=== PATIENT | female | born 1985 | race Hispanic/Latino ===

== ENCOUNTER 2018-01-30 22:55 | Inpatient (IN) | payer OTHER ==
[2018-01-30] MEDS ORDERED: Lactated Ringer's 1,000 ML IV SCH ×2 (23:45)
[2018-01-30 23:57] VITALS: BMI 28.8
[2018-01-31 00:05] LABS: BASO # 0.1 K/uL (0.0-0.2); BASO % 0.8 % (0.0-2.0); EOS # 0.1 K/uL (0.0-0.7); EOS % 0.4 % (0.0-4.0); LYMPH # 3.1 K/uL (1.0-4.3); LYMPH % 20.7 % (20.0-40.0); MEAN CELL VOLUME 88.7 fl (81.0-99.0); MEAN CORPUSCULAR HEMOGLOBIN 30.2 pg (27.0-31.0); MEAN PLATELET VOLUME 7.8 fl (7.2-11.7); MONO # 1.1 K/uL (0.0-0.8); MONO % 7.3 % (0.0-10.0); NEUT # 10.7 K/uL (1.8-7.0); NEUT % 70.8 % (50.0-75.0); NRBC % 0.1 % (0.0-0.0); RBC 4.29 Mil/uL (3.80-5.20); RED CELL DISTRIBUTION WIDTH 16.7 % (11.5-14.5); WHITE BLOOD COUNT 15.1 K/uL (4.8-10.8)
[2018-01-31] MEDS ORDERED: OXYTOCIN/0.9 % NS 20 UNIT/1,000 ML BAG IV SCH (00:15)
[2018-01-31] MEDS ORDERED: Oxytocin 30 UNITS in Sodium Chloride 0.9% 500 ML IV ONE (00:15)
[2018-01-31] MEDS ORDERED: Lactated Ringer's 1,000 ML IV SCH (00:15)
[2018-01-31] MEDS ORDERED: Fentanyl/Bupivacaine HCl 250 ML EPI ONE (00:21)
--- NOTE | 2018-01-31 02:24 | OBHP ---
Datetime: 01/31/2018 00:14 IP Adm Impression: Term, intrauterine IP Admit Plan: Admit to unit; Initiate labor protocol Pelvic Type - PN: Not Done Extremities - PN: Normal Abdomen - PN: Normal Back - PN: Normal Breast - PN: Normal Lungs - PN: Normal Heart - PN: Normal Thyroid - PN: Not Done Neurologic - PN: Normal HEENT - PN: Normal General - PN: Normal Comments, ACOG Physical Exam: General: In acute distress and pain Chest: RRR, S1S2 present Lungs: CTA B/L Abdomen: Tenderness with contractions, Gravid Ext: No pedal edema or calf tenderness Neuro: AAO x 3 SVE: 5 cm/100%/-1 IP Hx Assessment: The History has been Reviewed and is Current EGA AdmitDate IP: 39.6 Vital Signs Provider: Reviewed; Within Normal Limits IP Indication for Induction: Not Applicable IP Chief Complaint: Uterine contractions; Maternal discomfort NICHD Decel Fetus A IP Provider: None Effacement, Provider: 100 Station, Provider: -1 Genitourinary Exam: Normal DTRs - PN: Not Done Datetime: 01/30/2018 23:30 Admit Comment, IP Provider: 32 y/o, , 39.5 wks based on LMP of 04/27/17 and ESTHER of 02/01/18 prese nts to [facility] with uetrine contractions and abdominal discomfort. Contractions started at 2200hrs today which are Q2-3 mins continuous with lower abdominal pain and pressure. Denies any LOF or VB. Reports good movements. PNC: Dr. Horan records reviewed. PMHx: Denies PSHx: Denies Allergies: NKDA F/H: Noncontributory Medications: PNVs PE: General: In acute distress and pain Chest: RRR, S1S2 present Lungs: CTA B/L Abdomen: Tenderness with contractions, Gravid Ext: No pedal edema or calf tenderness Neuro: AAO x 3 SVE: 5 cm/100%/-1 A/P: 32 y/o, , 39.5 wks based on LMP of 04/27/17 and ESTHER of 02/01/18 presents to [facility] with uetr ine contractions. - EFM and toco monitoring - Contractions Q1-2 mins on toco - LR 2L @999 ml/hr - CBC and type and screen stat - 5 cm/100%/-1 Case disussed with attending Pepe Nguyen, PGY1 OB Hospitalist note. Pt seen and exained with PGY1 agree with note...observe labor progress MAHND O Presentation-Admit: Vertex FHR - Baseline A Provider: 140 Membranes, Provider: Intact Contraction Comments Provider: q2m Pool Provider: Negative NICHD Variability Prov Fetus A: Moderate 6-25bpm NICHD Accel Fetus A IP Provider: [id number] FHR Category Provider Fetus A: Category I Dilatation, Provider: 5
--- NOTE | 2018-01-31 02:42 | OBADHP ---
Datetime: 01/31/2018 02:30 Presentation-Admit: Vertex FHR - Baseline A Provider: 140 Membranes, Provider: Intact Contraction Comments Provider: occ Pool Provider: Negative NICHD Variability Prov Fetus A: Moderate 6-25bpm NICHD Accel Fetus A IP Provider: [id number] FHR Category Provider Fetus A: Category I NICHD Decel Fetus A IP Provider: None Dilatation, Provider: 9 Effacement, Provider: 100 Station, Provider: 0 Datetime: 01/31/2018 00:14 Admit Comment, IP Provider: 32 y/o, , 39.6 wks based on LMP of 04/27/17 and ESTHER of 02/01/18 prese nts with uetrine contractions and abdominal discomfort. Contractions started at 2200hrs yesterday whi ch are Q2-3 mins, continuous with lower abdominal pain and pressure. Denies any LOF or VB. Reports go od movements. PNC: Dr. Horan records reviewed. GBS Negative, B+, AB neg, HIV nonreactive, Hbsag neg, RPR, neg, Rubella immune, GC/Chl -/- PMHx: Denies PSHx: Denies Allergies: NKDA F/H: Noncontributory Medications: PNVs PE: General: In acute distress and pain Chest: RRR, S1S2 present Lungs: CTA B/L Abdomen: Tenderness with contractions, Gravid Ext: No pedal edema or calf tenderness Neuro: AAO x 3 SVE: 5 cm/100%/-1 A/P: 32 y/o, , 39.5 wks based on LMP of 04/27/17 and ESTHER of 02/01/18 presents to [facility] with uetr ine contractions. - EFM and toco monitoring - Contractions Q1-2 mins on toco - LR 2L @999 ml/hr - CBC and type and screen stat - 5 cm/100%/-1 - Anesthesia consult for epidural - NPO Case disussed with attending Pepe Nguyen, PGY1 OB Hospitalist note...Pt seen and examined. Painful CTX in Active labor. labor and pain managmen t disucsed - incl nitrous oxide, iv sedation and eipdural...anestheisa called for consultation Pelvic Type - PN: Not Done Extremities - PN: Normal Abdomen - PN: Normal Back - PN: Normal Breast - PN: Normal Lungs - PN: Normal Heart - PN: Normal Thyroid - PN: Not Done Neurologic - PN: Normal HEENT - PN: Normal General - PN: Normal Comments, ACOG Physical Exam: General: In acute distress and pain Chest: RRR, S1S2 present Lungs: CTA B/L Abdomen: Tenderness with contractions, Gravid Ext: No pedal edema or calf tenderness Neuro: AAO x 3 SVE: 5 cm/100%/-1 IP Hx Assessment: The History has been Reviewed and is Current Vital Signs Provider: Reviewed; Within Normal Limits IP Chief Complaint: Uterine contractions; Maternal discomfort Genitourinary Exam: Normal DTRs - PN: Not Done EGA AdmitDate IP: 39.6 IP Adm Impression: Term, intrauterine IP Admit Plan: Admit to unit; Initiate labor protocol
--- NOTE | 2018-01-31 02:47 | OBPN ---
Datetime: 01/31/2018 02:30 IP Progress Impression: Normal progression of labor IP Progress Plan: Continue present management; Anticipate Vaginal Delivery Pool Provider: Negative Membranes, Provider: Intact Contraction Comments Provider: occ FHR - Baseline A Provider: 140 Presentation-Admit: Vertex IP Progress Note Comment: She feels pressure in her tailbone...had epidural and feels much better Active phase of labor PLAN: observe labor progress NICHD Accel Fetus A IP Provider: [id number] FHR Category Provider Fetus A: Category I NICHD Variability Prov Fetus A: Moderate 6-25bpm Dilatation, Provider: 9 Effacement, Provider: 100 Station, Provider: 0 NICHD Decel Fetus A IP Provider: None Datetime: 01/31/2018 00:14 Vital Signs Provider: Reviewed; Within Normal Limits
[2018-01-31] MEDS ORDERED: Benzocaine/Menthol SPRAY TOP PRN ×2 (04:52→10:22)
[2018-01-31] MEDS ORDERED: Oxycodone/Acetaminophen 5/325 mg Tab PO PRN ×2 (04:52→10:22)
--- NOTE | 2018-01-31 07:25 | OBDS ---
DELIVERY PERSONNEL Delivery Doctor: Kendra Hroan DO Audiovisual Production Specialist: Irene Fletcher RN Anesthesiologist: Cr Oliva MD MATERNAL INFORMATION Delivery Anesthesia: Epidural Medications in Delivery: 30 units pitocin Estimated Blood Loss (ml): 200 Placenta Cultured: No Maternal Complications: None Provider Comments: Over intact perinuem, of live . Infant was crying spontaneously and b ulb suctioned. Infant was placed on mother's chest for skin to skin. Placenta was delivered intact spontaneously. EBL 200cc She remained stable LABOR SUMMARY EDC: 02/01/2018 00:00 No. Babies in Womb: 1 Attempted: No Labor Anesthesia: Epidural LABOR INFORMATION Reason for Induction: Not Applicable Onset of Labor: 01/30/2018 22:00 Complete Dilatation: 01/31/2018 04:00 Oxytocin: N/A Group B Beta Strep: Negative Antibiotics # of Doses: 0 Steroids Given: None Reason Steroids Not Administered: Not Applicable MEMBRANES Membranes Rupture Method: Spontaneous Rupture of Membranes: 01/31/2018 04:00 Length of Rupture (hrs): 0.53 Amniotic Fluid Color: Clear Amniotic Fluid Amount: Moderate Amniotic Fluid Odor: Normal STAGES OF LABOR Stage 1 hrs: 6 Stage 1 min: 0 Stage 2 hrs: 0 Stage 2 min: 32 Stage 3 hrs: 0 Stage 3 min: 12 Total Time in Labor hrs: 6 Total Time in Labor min: 44 VAGINAL DELIVERY Episiotomy: None Laceration Extension: N/A Laceration Type: None Initial Vag Sponge Count: 5 Final Vag Sponge Count: 5 Initial Vag Sharps Count: 1 Final Vag Sharps Count: 1 Sponge Count Correct: Yes Sharps Count Correct: Yes Count Comment: One syringe 5 lap pads BABY A INFORMATION Infant Delivery Date/Time: 01/31/2018 04:32 Method of Delivery: Vaginal Born in Route : No : N/A Forceps: N/A Vacuum Extraction: N/A Shoulder Dystocia : No SHOULDER DYSTOCIA BABY A Infant Delivery Date/Time: 01/31/2018 04:32 PRESENTATION/POSITION BABY A Presentation: Cephalic Cephalic Presentation: Vertex Breech Presentation: N/A PLACENTA INFORMATION BABY A Placenta Delivery Time : 01/31/2018 04:44 Placenta Method of Delivery: Spontaneous Placenta Status: Delivered SCORES BABY A Heart Rate 1 min: >100 bpm Resp Effort 1 min: Good Cry Reflex Irritability 1 min: Cough or Sneeze or Pulls Away Muscle Tone 1 min: Active Motion Color 1 min: Body [place], Extremities Blue Resuscitation Effort 1 min: Tactile Stimulation SCORE 1 MIN: 9 Heart Rate 5 min: >100 bpm Resp Effort 5 min: Good Cry Reflex Irritability 5 min: Cough or Sneeze or Pulls Away Muscle Tone 5 min: Active Motion Color 5 min: Body [place], Extremities Blue Resuscitation Effort 5 min: N/A SCORE 5 MIN: 9 INFANT INFORMATION BABY A Gestational Age at Delivery: 39.0 Gestational Status: Term Outcome : Liveborn Condition : Stable Infant Sex: Female WEIGHT/LENGTH BABY A Infant Birthweight (gms): 3150 Infant Weight (lb): 6 Weight (oz): 15 CORD INFORMATION BABY A No. Cord Vessels: 3 Nuchal Cord : N/A Infant Suction: None
[2018-01-31] MEDS ORDERED: Multivitamin With Minerals Tab PO SCH (09:00)
[2018-02-01 08:01] LABS: BASO # 0.1 K/uL (0.0-0.2); BASO % 0.5 % (0.0-2.0); EOS # 0.2 K/uL (0.0-0.7); EOS % 1.2 % (0.0-4.0); HEMOGLOBIN 9.8 g/dL (12.0-16.0); LYMPH # 3.4 K/uL (1.0-4.3); LYMPH % 25.7 % (20.0-40.0); MEAN CELL VOLUME 88.9 fl (81.0-99.0); MEAN CORPUSCULAR HEMOGLOBIN 30.8 pg (27.0-31.0); MEAN CORPUSCULAR HGB CONC 34.6 g/dL (33.0-37.0); MEAN PLATELET VOLUME 7.9 fl (7.2-11.7); MONO # 0.9 K/uL (0.0-0.8); MONO % 7.1 % (0.0-10.0); NEUT # 8.7 K/uL (1.8-7.0); NEUT % 65.5 % (50.0-75.0); NRBC % 0.1 % (0.0-0.0); RBC 3.18 Mil/uL (3.80-5.20); RED CELL DISTRIBUTION WIDTH 16.6 % (11.5-14.5); WHITE BLOOD COUNT 13.2 K/uL (4.8-10.8)
[2018-02-01] MEDS ORDERED: PRENATAL VITAMINS PO SCH (09:00)
[2018-02-01] MEDS: Multivitamin With Minerals Tab PO SCH (10:45)
[2018-02-01 17:18] LABS: SQUAMOUS EPITHIAL 3 /hpf (0-5); URINE BILIRUBIN NEGATIVE (NEGATIVE); URINE CLARITY SLIGHTY-CLOUDY (Clear); URINE COLOR YELLOW (YELLOW); URINE GLUCOSE (UA) NEG (Normal); URINE LEUKOCYTE ESTERASE NEG Leu/uL (Negative); URINE PROTEIN NEGATIVE (NEGATIVE); URINE UROBILINOGEN 0.2-1.0 mg/dL (0.2-1.0)
[2018-02-01 17:53] LABS: URINE BLOOD SMALL (NEGATIVE)
--- NOTE | 2018-02-02 01:10 | OBPPN ---
Datetime: 02/01/2018 12:08 PP Pain Prov: Within normal limits PP Nausea Prov: Denies PP Flatus Prov: Yes PP Breasts Prov: Normal PP Heart Prov: Normal PP Lungs Prov: Normal PP Abdomen/Uterus Prov: Normal PP Lochia Prov: Normal PP Vulva/Perineum Prov: Normal PP CVA Tenderness Prov: Normal PP Extremities Prov: Normal PP Comments Phys Exam Prov: Abdomen soft, nontender, nondistended Uterus firm, below umbilicus No deep calf tenderness bilaterally PP Impression Prov: Normal progression PP Plan Prov: Continue present management PP Progress Note Prov: day #1 status post , patient recovering well Ambulation Pain control Regular diet Anticipate discharge home tomorrow IP PP Procedures: None Vital Signs Provider PP: Reviewed; Within Normal Limits
--- NOTE | 2018-02-02 08:55 | OBPPN ---
Datetime: 02/02/2018 08:53 PP Pain Prov: Within normal limits PP Nausea Prov: Denies PP Flatus Prov: Yes PP Breasts Prov: Not Done PP Heart Prov: Normal PP Lungs Prov: Normal PP Abdomen/Uterus Prov: Normal PP Lochia Prov: Not Done PP Vulva/Perineum Prov: Not Done PP CVA Tenderness Prov: Normal PP Extremities Prov: Normal PP Progress Prov: Normal PP Impression Prov: Normal progression PP Plan Prov: Discharge PP Progress Note Prov: Patient doing well patient cleared for discharge Vital Signs Provider PP: Reviewed
--- NOTE | 2018-02-02 08:58 | OBDCSUM ---
Datetime: 02/02/2018 08:54 Discharged to, Provider: Home Follow up at, Provider: 6 weeks Disch Instr Activity: Normal activity Disch Instr Diet: Regular Discharge Instructions, Provider: Routine instructions given Discharge Diagnosis, Provider: Term Delivered Follow up in weeks, Provider: Stephanie Disch Referrals: None Contraception discussed, Prov: Yes Disch Activity Restrictions: No sexual activity; Nothing in vagina - [place], tampons, douche Discharge Comment, Provider: cleared for discharge Contraception after Delivery: Undecided
[2018-02-02] MEDS: Multivitamin With Minerals Tab PO SCH (09:55)
[2018-02-02 21:37] VITALS: BP 105/67; PULSE 80; RESP 20; TEMP 99.2; O2SAT 100
== END 2018-02-02 13:30 | disposition home or self-care (01) | DRG 775 ==
LOC: H.EROB2 22:55 → H.L&D 01-31 00:34 → H.OB/GYN 01-31 09:22
PROVIDERS: ADMIT Obstetrics & Gynecology; ATTEND Obstetrics & Gynecology
PROC: 10E0XZZ Delivery of Products of Conception, External Approach (ICD-10-PCS; principal; 2018-01-31)
PROC: 4A1HXCZ Monitoring of Products of Conception, Cardiac Rate, External Approach (ICD-10-PCS; 2018-01-31)
DX: O80 Encounter for full-term uncomplicated delivery (principal); Z37.0 Single live birth; Z3A.39 39 weeks gestation of pregnancy